=== PATIENT | male | born 1985 | race Two or more races ===

== ENCOUNTER 2021-09-07 18:40 | Emergency (ER) | payer OTHER ==
[~2021-09-07] VITALS: Ht 180.3 cm; Wt 113.4 kg
[2021-09-07] MEDS ORDERED: TYLENOL (19:07)
[2021-09-08] MEDS ORDERED: IBU800 MG PO
== END 2021-09-08 00:06 | disposition home or self-care (01) ==
LOC: ER 18:40
DX: S82.62XA Displaced fracture of lateral malleolus of left fibula, initial encounter for closed fracture (principal); Y93.01 Activity, walking, marching and hiking; Y93.84 Activity, sleeping; Y92.833 Campsite as the place of occurrence of the external cause; Y99.9 Unspecified external cause status